=== PATIENT | female | born 1990 | race Caucasian/White ===

== ENCOUNTER 2017-11-05 06:31 | Emergency (ER) | payer OTHER ==
[~2017-11-05] VITALS: Ht 167.6 cm; Wt 74.1 kg
[2017-11-05 06:35] VITALS: TEMP 36.9; Ht 167.6 cm; Wt 74.1 kg
[2017-11-05] MEDS ORDERED: SODIUM CHLORIDE 0.9% 500ML 500 ML IV STA (06:55)
[2017-11-05] MEDS ORDERED: DiphenhydrAMINE HCL 50 MG/ML VIAL IV STA (06:55)
[2017-11-05] MEDS ORDERED: ALBUTEROL HFA 8 GM INHALER INH STA ×2 (06:55→08:51)
[2017-11-05] MEDS ORDERED: ALBUTEROL 0.083% NEBU SOLN 3 ML VIAL INH STA (06:55)
[2017-11-05] MEDS ORDERED: PROCHLORPERAZINE 5 MG/ML 2 ML VIAL IV STA (06:55)
[2017-11-05] MEDS ORDERED: KETOROLAC TROMETHAMINE 30 MG/ML VIAL IV STA (06:55)
--- NOTE | 2017-11-05 06:58 | EMERGENCY ROOM VISIT NOTE ---
History Report prepared by Walter: Brennon Alcala Under the Supervision of: Dr. Alonso Galeas M.D. First contact with patient: 06:41 Chief Complaint: SYNCOPE (NEAR SYNCOPE) Stated Complaint: PASSING OUT,BREATHING DIFFICULTY History of Present Illness The patient is a 27 year old female who presents to the Emergency Room with complaints of a persistent headache that began yesterday morning, one day prior to arrival. The patient states that her headache began yesterday prior to developing pain radiating down her left arm and left leg. She ignored the symptoms and continued to go to work where she developed a mild sore throat and cough. The patient has not taken any medications as she is supposed to have a hysterectomy next Thursday for endometriosis Source of History: patient Onset: One day [employer] Position: head Quality: other (ALDANA) Timing: other (persistent) Associated Symptoms: + sorethroat, + cough Review of Systems See HPI for pertinent positives & negatives. A total of 10 systems reviewed and were otherwise negative. Past Medical & Surgical Medical Problems: (1) Endometriosis Multiple sections. Family History Cancer Diabetes mellitus Lung disease Social History Smoking Status: Current Every Day Smoker Housing Status: lives with family Occupation Status: employed Current/Historical Medications No Active Prescriptions or Reported Meds Allergies Coded Allergies: No Known Allergies (Unverified , 11/05/17) Physical Exam Vital Signs Date Time Temp Pulse Resp B/P (MAP) Pulse Ox O2 Delivery O2 Flow Rate FiO2 11/05/17 09:08 91 17 118/57 97 11/05/17 07:34 98 Room Air 11/05/17 07:34 86 15 119/69 98 Room Air 11/05/17 07:28 101 11/05/17 06:35 36.9 105 20 130/70 95 Room Air Physical Exam GENERAL: Patient is a healthy-appearing well-nourished female. HEAD: Normocephalic atraumatic EYES: Ocular movements intact pupils equal and react to light OROPHARYNX mucous membranes are moist no exudates present no erythema or edema present NECK: Supple no nuchal rigidity. NO evidence of meningitis encephalitis on exam. CHEST: Good equal expansion LUNGS: Clear and equal to auscultation CARDIAC: Normal S1 and S2 ABDOMEN: Soft nontender no guarding BACK: No CVA tenderness EXTREMITIES: No pain upon palpation normal muscle strength in all groups no clubbing cyanosis or edema NEURO: Patient is following commands and answering questions appropriately. Alert and oriented x3 Cranial Nerves 2-12 grossly intact Medical Decision & Procedures ER Provider Diagnostic Interpretation: Radiology results as stated below per my review and radiologist interpretation: CHEST ONE VIEW PORTABLE HISTORY: 27 years-old Female Pt c/o SOB acute shortness of breath COMPARISON: None available TECHNIQUE: Portable AP view of the chest FINDINGS: Cardiomediastinal and hilar silhouettes are within normal limits. No pneumothorax, pleural effusion, focal airspace consolidation or overt pulmonary edema. Bones of the chest appear grossly intact. IMPRESSION: No acute process. The above report was generated using voice recognition software. It may contain grammatical, syntax or spelling errors. Electronically signed by: Aren Cooper M.D. 11/05/2017 7:08 AM Dictated Date/Time: 11/05/2017 7:07 AM Laboratory Results 11/05/17 07:20 Red Blood Count 4.33, Mean Corpuscular Volume 91.2, Mean Corpuscular Hemoglobin 32.3, Mean Corpuscular Hemoglobin Concent 35.4, Mean Platelet Volume 10.7, Neutrophils (%) (Auto) 73.6, Lymphocytes (%) (Auto) 13.2, Monocytes (%) (Auto) 11.4, Eosinophils (%) (Auto) 1.4, Basophils (%) (Auto) 0.2, Neutrophils # (Auto ) 4.74, Lymphocytes # (Auto) 0.85, Monocytes # (Auto) 0.73, Eosinophils # (Auto ) 0.09, Basophils # (Auto) 0.01 11/05/17 07:20 Test 11/05/17 07:10 11/05/17 07:20 11/05/17 08:25 Influenza Type A Antigen Neg for Influ A (NEG) Influenza Type B Antigen Neg for Influ B (NEG) White Blood Count 6.43 K/uL (4.8-10.8) Red Blood Count 4.33 M/uL (4.2-5.4) Hemoglobin 14.0 g/dL (12.0-16.0) Hematocrit 39.5 % (37-47) Mean Corpuscular Volume 91.2 fL (80-100) Mean Corpuscular Hemoglobin 32.3 pg (25-34) Mean Corpuscular Hemoglobin Concent 35.4 g/dl (32-36) Platelet Count 133 K/uL (130-400) Mean Platelet Volume 10.7 fL (7.4-10.4) Neutrophils (%) (Auto) 73.6 % Lymphocytes (%) (Auto) 13.2 % Monocytes (%) (Auto) 11.4 % Eosinophils (%) (Auto) 1.4 % Basophils (%) (Auto) 0.2 % Neutrophils # (Auto) 4.74 K/uL (1.4-6.5) Lymphocytes # (Auto) 0.85 K/uL (1.2-3.4) Monocytes # (Auto) 0.73 K/uL (0.11-0.59) Eosinophils # (Auto) 0.09 K/uL (0-0.5) Basophils # (Auto) 0.01 K/uL (0-0.2) RDW Standard Deviation 42.5 fL (36.4-46.3) RDW Coefficient of Variation 12.7 % (11.5-14.5) Immature Granulocyte % (Auto) 0.2 % Immature Granulocyte # (Auto) 0.01 K/uL (0.00-0.02) Anion Gap 9.0 mmol/L (3-11) Est Creatinine Clear Calc Drug Dose 111.5 ml/min Estimated GFR () 120.8 Estimated GFR (Non- 104.2 BUN/Creatinine Ratio 8.4 (10-20) Calcium Level 8.7 mg/dl (8.5-10.1) Total Bilirubin 0.3 mg/dl (0.2-1) Direct Bilirubin < 0.1 mg/dl (0-0.2) Aspartate Amino Transf (AST/SGOT) 13 U/L (15-37) Alanine Aminotransferase (ALT/SGPT) 18 U/L (12-78) Alkaline Phosphatase 64 U/L (45-117) Total Protein 7.1 gm/dl (6.4-8.2) Albumin 3.8 gm/dl (3.4-5.0) Urine Color YELLOW Urine Appearance CLOUDY (CLEAR) Urine pH 6.5 (4.5-7.5) Urine Specific [place] 1.011 (1.000-1.030) Urine Protein NEG (NEG) Urine Glucose (UA) NEG (NEG) Urine Ketones NEG (NEG) Urine Occult Blood 2+ (NEG) Urine Nitrite POS (NEG) Urine Bilirubin NEG (NEG) Urine Urobilinogen NEG (NEG) Urine Leukocyte Esterase TRACE (NEG) Urine WBC (Auto) 1-5 /hpf (0-5) Urine RBC (Auto) 0-4 /hpf (0-4) Urine Hyaline Casts (Auto) 1-5 /lpf (0-5) Urine Epithelial Cells (Auto) >30 /lpf (0-5) Urine Bacteria (Auto) 4+ (NEG) Labs reviewed by ED physician. Medications Administered Medications (Trade) Dose Ordered Sig/Koffi Route Start Time Stop Time Status Last Admin Dose Admin Albuterol (Ventolin Hfa Inhaler) 2 puffs NOW STAT INH 11/05/17 06:55 11/05/17 06:57 DC 11/05/17 07:15 2 PUFFS Albuterol Sulfate (Ventolin 0.083% 2.5MG/3ML Neb) 2.5 mg NOW STAT INH 11/05/17 06:55 11/05/17 06:57 DC 11/05/17 07:15 2.5 MG Ketorolac Tromethamine (Toradol Inj) 30 mg NOW STAT IV 11/05/17 06:55 11/05/17 06:57 DC 11/05/17 07:14 30 MG Diphenhydramine HCl (Benadryl Inj) 50 mg NOW STAT IV 11/05/17 06:55 11/05/17 06:57 DC 11/05/17 07:11 50 MG Prochlorperazine Edisylate (Compazine Inj) 5 mg NOW STAT IV 11/05/17 06:55 11/05/17 06:57 DC 11/05/17 07:13 5 MG Sodium Chloride 500 ml @ 999 mls/hr Q31M STAT IV 11/05/17 06:55 11/05/17 07:25 DC 11/05/17 07:14 999 MLS/HR Albuterol (Ventolin Hfa Inhaler) 2 puffs NOW STAT INH 11/05/17 08:51 11/05/17 08:52 DC 11/05/17 09:05 2 PUFFS ED Course 0649: Past medical records reviewed. The patient was evaluated in room A11B. A complete history and physical examination was performed. 0655: Ordered Sodium Chloride 500 mL @ 999 mL/hr Iv, Compazine 5 mg IV, Benadryl 50 mg Iv, Toradol 30 mg IV, Albuterol Sulfate 2.5 mg INH, Albuterol 2 puffs. 0851: Ordered Albuterol 2 puffs INH. 0854: Upon reexamination the patient is resting in bed. I discussed results and treatment plan with the patient. She verbalizes agreement and understanding. The patient is ready for discharge. Medical Decision Differential diagnosis: Etiologies such as migraine headache, meningitis, sinusitis, CO exposure, ICH, SAH, infection, tumor, headache, sinus thrombosis, arterial dissection, as well as others were entertained. This is a 27-year-old female who presents emergency department complaining of cough and fevers at home Medication Reconcilliation Current Medication List: was personally reviewed by me Blood Pressure Screening Patient's blood pressure: Normal blood pressure Impression Primary Impression: URI (upper respiratory infection) Scribe Attestation The scribe's documentation has been prepared under my direction and personally reviewed by me in its entirety. I confirm that the note above accurately reflects all work, treatment, procedures, and medical decision making performed by me. Departure Information Dispostion Home / Self-Care Prescriptions No Active Prescriptions or Reported Meds Referrals No Doctor, Assigned (PCP) Forms HOME CARE DOCUMENTATION FORM, IMPORTANT VISIT INFORMATION Patient Instructions My [facility] Additional Instructions Use inhaler twice every 6 hours Take 1000 mg Tylenol every 6 hours Take 600 mg Ibuprofen every 6 hours Increase fluid next 48 hours You have been examined and treated today on an emergency basis only. This is not a substitute for, or an effort to provide, complete comprehensive medical care. It is impossible to recognize and treat all injuries or illnesses in a single emergency department visit. It is therefore important that you follow up closely with Dr Alvarez. Call as soon as possible for an appointment. Thank you for your time and consideration. I look forward to speaking with you again soon. Please don't hesitate to call us if you have any questions. Problem Qualifiers Primary Impression: URI (upper respiratory infection) URI type: unspecified viral URI Qualified Codes: J06.9 - Acute upper respiratory infection, unspecified
--- NOTE | 2017-11-05 07:10 | DIAGNOSTIC IMAGING REPORT ---
CHEST ONE VIEW PORTABLE HISTORY: 27 years-old Female Pt c/o SOB acute shortness of breath COMPARISON: None available TECHNIQUE: Portable AP view of the chest FINDINGS: Cardiomediastinal and hilar silhouettes are within normal limits. No pneumothorax, pleural effusion, focal airspace consolidation or overt pulmonary edema. Bones of the chest appear grossly intact. IMPRESSION: No acute process. The above report was generated using voice recognition software. It may contain grammatical, syntax or spelling errors. Electronically signed by: Aren Cooper M.D. 11/05/2017 7:08 AM Dictated Date/Time: 11/05/2017 7:07 AM
[2017-11-05 07:33] LABS: BASO % 0.2 %; BASO ABS # 0.01 K/uL (0-0.2); EOS % 1.4 %; EOS ABS # 0.09 K/uL (0-0.5); HEMATOCRIT 39.5 % (37-47); IG# 0.01 K/uL (0.00-0.02); LYMPH % 13.2 %; LYMPH ABS # 0.85 K/uL (1.2-3.4); MEAN CELL VOLUME 91.2 fL (80-100); MEAN CORPUSCULAR HEMOGLOBIN 32.3 pg (25-34); MEAN CORPUSCULAR HGB CONC 35.4 g/dl (32-36); MEAN PLATELET VOLUME 10.7 fL (7.4-10.4); MONO % 11.4 %; MONO ABS # 0.73 K/uL (0.11-0.59); NEUT % 73.6 %; NEUT ABS # 4.74 K/uL (1.4-6.5); PLATELET COUNT 133 K/uL (130-400); RED CELL DISTRIBUTION WIDTH CV 12.7 % (11.5-14.5); RED CELL DISTRIBUTION WIDTH SD 42.5 fL (36.4-46.3); WHITE BLOOD COUNT 6.43 K/uL (4.8-10.8)
[2017-11-05 07:34] VITALS: O2SAT 98
[2017-11-05 07:51] LABS: ALBUMIN 3.8 gm/dl (3.4-5.0); ALT/SGPT 18 U/L (12-78); BLOOD UREA NITROGEN 7 mg/dl (7-18); CALCIUM 8.7 mg/dl (8.5-10.1); CARBON DIOXIDE 24 mmol/L (21-32); CREATININE 0.78 mg/dl (0.60-1.20); GLUCOSE 95 mg/dl (70-99); SODIUM 140 mmol/L (136-145)
[2017-11-05 07:54] LABS: ALKALINE PHOSPHATASE 64 U/L (45-117); AST/SGOT 13 U/L (15-37); TOTAL PROTEIN 7.1 gm/dl (6.4-8.2)
[2017-11-05 08:18] LABS: INFLUENZA B ANTIGEN Neg for Influ B (NEG)
[2017-11-05 09:08] VITALS: BP 118/57; PULSE 91; O2SAT 97
== END 2017-11-05 09:09 | disposition home or self-care (01) ==
LOC: C.EDB 06:33 → C.EDA 09:09
DX: J06.9 Acute upper respiratory infection, unspecified (principal); R55 Syncope and collapse; R51 Headache; M79.602 Pain in left arm; M79.605 Pain in left leg; N80.0 Endometriosis of uterus; Z83.3 Family history of diabetes mellitus; Z83.6 Family history of other diseases of the respiratory system; F17.200 Nicotine dependence, unspecified, uncomplicated